=== PATIENT | female | born 1940 | race Caucasian/White ===

== ENCOUNTER → 2016-11-12 | Outpatient (CLI) | payer MEDICARE, BC ==
--- NOTE | 2016-11-12 18:25 | XCELERA REPORT ---
[address] [address] Lower Extremity Venous Evaluation Name: RABIA VALDES Age: 76 yrs Gender: Female : 1940 Patient Status: Outpatient Patient Location: Study Date: 11/12/2016 02:49 PM Procedure: Color flow and duplex imaging bilaterally of the veins of the lower extremities as well as the Common Femoral veins. Reason For Study: EDEMA Ordering Physician: JIA BORJA Performed By: Yara Burrows Right Sided Venous Evaluation Normal vessel filling wall to wall, compression and augmentation as well as Colour flow down to the infrageniculate veins. Left Sided Venous Evaluation Normal vessel filling wall to wall, compression and augmentation as well as Colour flow down to the infrageniculate veins. Interpretation Summary No duplex evidence of DVT or obstruction in the bilateral lower extremities. : JIA BORJA [place]
== END ==
LOC: SP 14:21
PROVIDERS: ATTEND Family Medicine
DX: R60.9 Edema, unspecified (principal)
CPT/HCPCS: 93970